=== PATIENT | female | born 1965 | race Caucasian/White ===

== ENCOUNTER → 2018-11-25 | Outpatient (CLI) | payer BC ==
--- NOTE | 2018-11-30 11:58 | PCVCIMAG ---
APPROVED REPORT Study performed: 11/25/2018 15:18:01 Exam: Stress Echocardiogram Indication: Palpitations, fam hx cad, tacycardia, dizziness Patient Location: Echo lab Stress Nurse: Magali Calixto RN Status: routine Ht: 5 ft 7 in HR: 73 bpm BP: 138/80 mmHg Rhythm: NSR Procedure The patient underwent an Exercise Stress Test using the Edmund Protocol. Blood pressure, heart rate, and EKG were monitored. An Echocardiogram was performed by site damage prevention technician in four stages in quad fashion. At peak stress, four selected images were obtained and placed side by side with resting images for comparison. Stress Test Details Stress Test: Exercise stress testing was performed using a Edmund protocol. HR Resting HR: 73 bpmMax Heart Rate (APMHR): 165 bpm Max HR Achieved: 160 bpmTarget HR (85% APMHR): 140 bpm % of APMHR: 96 Recovery HR: 93 bpm HR response to stress: Normal HR response to stress BP Resting BP: 138/80 mmHg Max BP: 182/84 mmHg Recovery BP: 142/76 mmHg BP response to stress: Normal blood pressure response to stress. ECG Resting ECG: Sinus Rhythm Stress ECG: Sinus Rhythm ST Change: Normal Maximum ST Deviation: 0 mm Arrhythmia: rare PVC Recovery ECG: Sinus Rhythm Recovery ST Change: Normal Recovery ST Deviation: 0 mm Recovery Arrhythmia: None Clinical Reason for Termination: Maximal effort, knee pain Stress Symptoms: Dyspnea, knee pain Exercise duration: 5 min 59 sec Highest Stage Achieved: Stage 2: 2.5 mph at 12% grade. Exercise capacity: 7 METs Overall Exercise Capacity for Age: Average Scale: Active Angina Score: None Stress ECG Conclusion Clinical: Non-ischemic ECG: Non-ischemic Cintron Treadmill Score is 5.0 which is Low risk. Pre-Stress Echo The resting Echocardiogram showed normal left ventricular contractility with an estimated Ejection Fraction of about >55%. The resting echocardiogram demonstrated normal wall motion in all wall segments. Post-Stress Echo The stress Echocardiogram showed normal left ventricular contractility with an estimated Ejection Fraction of about 65%. Compared to rest, there were no stress-induced wall motion abnormalities. Clinical No clinical or ECG evidence for ischemia. Conclusion Clinical Response: Non-ischemic Exercise Capacity: Average Stress ECG Response: Non-ischemic Stress Echo Images: Non-ischemic The left ventricle is normal in size and wall thickness in both the rest and stress images. Normal color doppler. No regurgitation or stenosis present on pulmonic, mitral, tricuspid or aortic valves. Normal stress echocardiogram with maximal exercise stress. Other Information Study Quality: Adequate <Conclusion> The left ventricle is normal in size and wall thickness in both the rest and stress images. Normal color doppler. No regurgitation or stenosis present on pulmonic, mitral, tricuspid or aortic valves. Normal stress echocardiogram with maximal exercise stress.
== END | disposition home or self-care (01) ==
LOC: PCVCIMAG 16:02
PROVIDERS: ATTEND Internal Medicine
DX: R00.2 Palpitations (principal); R07.2 Precordial pain; E78.5 Hyperlipidemia, unspecified; R63.5 Abnormal weight gain; Z68.25 Body mass index [BMI] 25.0-25.9, adult; Z88.1 Allergy status to other antibiotic agents
CPT/HCPCS: 93325; 93351